=== PATIENT | female | born 1980 | race Caucasian/White ===

== ENCOUNTER 2023-06-02 12:35 | Outpatient (CLI) | payer BC, SELFPAY ==
--- NOTE | ~2023-06-02 | CT_ITS ---
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 Additional sagittal and coronal reconstructions were performed. Automated exposure cont rol and iterative reconstruction technique were employed. The dose-length product was 482.30 mGy-cm. COMPARISON: None FINDINGS: There are a pair of anterior to posteriorly directed lag screw spanning the neck of the talus likely for fixation of either an old fracture or osteotomy at the talar neck. Additional old healed fracture deformity suggested at the medial malleolus. There is severe osteoarthritis at the right ankle joint with remodeling of the articular surfaces at the anteromedial talar dome and tibial plafond. There i s osteochondral bodies at the anterior recesses of the joint space. Additional moderate to severe ost eoarthritis at the subtalar joint. Mild osteoarthritis at multiple joints in the midfoot. IMPRESSION: 1. Internally fixed likely old healed talar fracture versus osteotomy with secondary osteoarthritis, severe at the tibiotalar and moderate to severe at the subtalar joints. Reviewed, dictated and finalized at location A. [facility] [facility] IMPRESSION: 1. Internally fixed likely old healed talar fracture versus osteotomy with seco ndary osteoarthritis, severe at the tibiotalar and moderate to severe at the adams btalar joints.
== END 2023-06-02 12:36 | disposition home or self-care (01) ==
LOC: ANHIMG 12:37
PROVIDERS: PCP Registered Nurse; Visit Provider Orthopaedic Surgery
DX: M87.071 Idiopathic aseptic necrosis of right ankle (principal)
CPT/HCPCS: 73700

== ENCOUNTER 2023-07-15 01:29 | Day surgery (SDC) | payer BC, SELFPAY ==
[2023-07-09 12:32] VITALS: BMI 29.0
--- NOTE | 2023-07-09 12:37 | PC.NURSE ---
Report to the Outpatient Waiting Room, entrance under the green pavilion located off [facility], at time 1000 on date 07/15/23. Planned Procedure Time: 1200. Time changes happen often and if your time is changed the preop area will call you the afternoon before. - You and your visitor will be asked to self-screen and do not enter if you have any COVID symptoms. - A mask is optional within the hospital at this time. Patients may have clear liquids (water, carbonated beverages, clear teas, apple juice) until 3 hours prior to surgery with a maximum of 20 ounces. - No food from midnight until time of surgery Take the following medications with a SIP of water the morning of surgery: NONE DO NOT STOP ANY OF YOUR OTHER PRESCRIPTION MEDICATIONS PRIOR TO SURGERY ?EXCEPT THE FOLLOWING Medications to discontinue per physician: N/A Date to take last dose: N/A Please no make-up, nail indonesian, hairspray, perfume, deodorant, or body powder the day of surgery. No jewelry (including any body piercings) or valuables the day of surgery, leave them at home. Please take a shower or bath the night before, or the morning of, surgery with an antibacterial soap. Wear comfortable, loose fitting clothing. - Jewelry must be removed prior to entering the operating room. Rings and piercings that are not removed may be cut off. - The hospital will not accept responsibility for valuables. - Please leave all valuables, including medications, at home the day of surgery. If you are going home after surgery, a licensed otr driver must drive you home. - NO public transportation without another adult if you receive anesthesia. - We recommend that an adult stay with you for 24 hours following discharge. - We also recommend that you do not drive, make important decision, drink alcoholic beverages, or take any drugs that were not prescribed by your health care provider for at least 24 hours after your discharge time. Follow any additional instructions given to you from your surgeon. If you or anyone in your household have experienced Covid symptoms in the past week, please notify your surgeon or the nurse liaison at the phone number below for possible testing. Telephone instructions given to PT - CHRISTOPHER NEUMANN and asked if any additional questions and then verbalized understanding. Patient advised to call surgeon office or pre surgery nurse liaison [phone] if any additional questions.
[2023-07-15] VITALS (7 sets, daily range): BP systolic 118–148; BP diastolic 63–89; PULSE 62–89; RESP 16–20; TEMP 36.2–36.8; O2SAT 98–100
--- NOTE | ~2023-07-15 | XR_ITS ---
EXAMINATION: XR surgery orthopedic DATE: 07/15/2023 13:36 INDICATION: Right ankle orthopedic instrumentation removal TECHNIQUE: 3 fluoroscopic images of the right ankle were obtained during procedure performed by Dr. Tristan sam. Radiologist was not present for the imaging or procedure. The amount of fluoroscopy time used during this procedure was 0.1 minutes. COMPARISON: 06/23/2023 FINDINGS: There are residual lucent screw tracks in the calcaneus at the site of the since removed cannulated l ag screws. Residual irregular contour to the talus with depression of the talar dome likely sequela o f prior fracture or osteotomy. No acute fracture. There is also been resection of a couple loose oste ochondral bodies the anterior recess of the ankle joint and cheilectomy with resection of a prominent anterior osteophyte at the tibial plafond. Mild osteoarthritis at the subtalar joint. Severe osteoar thritis at the tibiotalar joint. Expected small amount of postoperative gas is seen at the anterior r ecess of the ankle joint. IMPRESSION: 1. Fluoroscopy utilized during the procedure the right ankle and hindfoot including removal of fixati on screws at the talus and resection of osteophytes and loose osteochondral bodies at the anterior re cess of the ankle joint. See procedure note for further detail. Reviewed, dictated and finalized at location L. IMPRESSION: 1. Fluoroscopy utilized during the procedure the right ankle and hindfoot inclu ding removal of fixation screws at the talus and resection of osteophytes and l oose osteochondral bodies at the anterior recess of the ankle joint. See proced ure note for further detail.
--- NOTE | 2023-07-15 09:48 | WPDHPUPDATE1 ---
History and Physical Update Update Date/Time: 07/15/23 09:48 History and Physical has been reviewed, including an updated exam of the patient. There are NO changes in the patient's condition. Plan open debridement of ankle with excision of osteophytes, hardware removal. Risks, benefits, and alternatives have been discussed and questions answered. Patient agrees to proceed with procedure.
--- NOTE | 2023-07-15 10:17 | P.PNAN_ITS ---
Anes - Eval Pre Procedure Procedure: Operation Date: 07/15/23 12:00 Proposed Procedures p Right Ankle Debridement, Removal of Hardware, Possible Bone Graft, Proceed as indicated - German Stafofrd MD Date/Time: 07/15/23 10:17 Pre Op Diagnosis: Rt Ankle Pain, Instability, Hardware,Exostosis Patient Data Age: 43 Gender: F Height: 1.7 m Weight: 83.95 kg Allergies Allergy/AdvReac Type Severity Reaction Status Date / Time No Known Allergies Allergy Mild Verified 07/15/23 10:10 Home Medications Medication Instructions Recorded Confirmed Type cetirizine 10 mg tablet (Zyrtec) 10 mg PO DAILY PRN Allergy Symptoms 03/12/22 07/09/23 History phentermine 37.5 mg tablet 37.5 mg PO DAILY PRN Weight Gain 07/09/23 07/15/23 History trazodone 150 mg tablet 150 mg PO HS PRN Sleep 07/09/23 07/15/23 History Patient hx anesthesia problems: none Family hx anesthesia problems: none Results Review: All pre-operative results and documents have been reviewed as part of the pre- operative evaluation. [facility] Past Medical History Medical History Anxiety Arthritis Avascular necrosis of right talus Chronic pain of right ankle Eczema Fracture of neck of right talus Traumatic arthritis of right ankle Surgical History Surgical History Aftercare following right ankle joint replacement surgery Right talus fracture 1997 History of surgery on lower extremity Left leg rods/pins 1997 Family History Family History Other Diabetes mellitus Family history of arthritis Family history of cardiovascular disease HLD (hyperlipidemia) Heart disease Hypertension Social History Social History Smoking status: Never smoker Alcohol intake: current Alcohol use details: 1/MONTH Substance use: never Substance use type: does not use Current Housing: Decline to Answer Concerned About Future Housing: Decline to Answer Difficulty Paying Gas/Electric Bills: Decline to Answer Difficulty Paying for Meds: Decline to Answer Currently Unemployed: Decline to Answer Education: Decline to Answer Difficulty w/ Childcare or Family Care: Decline to Answer Living arrangements: with family Occupation/Education: occupation Gender identity (if verbalized by the patient): Female Spiritual care concerns: No Exam Day of Procedure 07/15/23 10:17 Patient weight: overweight
[2023-07-15] MEDS: ACETAMINOPHEN 500 MG TABLET 1000 MG PO (10:41)
[2023-07-15] MEDS: KETOROLAC 15 MG/ML VIAL (*BKC) IV PUSH (10:52)
[2023-07-15] MEDS: LACTATED RINGERS 1,000 ML 30 ML IV CONT ×2 (10:53→14:19)
--- NOTE | 2023-07-15 11:22 | P.PNAN_ITS ---
Anes - Eval Final PreProcedure Day of Procedure 07/15/23 11:22 Patient weight: obese Heart: regular rate and rhythm Lungs: clear to auscultation Airway: Mallampati scale class II Neurological: alert and oriented Last oral intake: >/= 8 hours ASA classification: II Emergent: no Anesthetic plan: proceed Anesthesia type and monitoring: general LMA and standard monitoring Results Review: All pre-operative results and documents have been reviewed as part of the pre- operative evaluation. Informed Consent: The patient's anesthetic plan and its attendant risks and benefits were discussed with the patient/family/POA. Questions were solicited and answers provided to the satisfaction of the patient/family/POA.
[2023-07-15] MEDS: ceFAZolin 2 GM/D5W 50 ML 2 GM/50 ML BAG IVPB (11:54)
[2023-07-15] MEDS: BUPivacaine HCL 0.5% 10 ML AMP 30 ML INFILTRATE (12:37)
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
[2023-07-15] MEDS: fentaNYL CITRATE INJ (*CRX) 100 MCG/2 ML VIAL 25 MCG IV PUSH ×4 (14:28→14:44)
[2023-07-15] MEDS: oxyCODONE HCL (*CRX) 5 MG TAB IR PO (15:06)
== END 2023-07-15 15:50 | disposition home or self-care (01) ==
PROVIDERS: PCP Registered Nurse; Visit Provider Orthopaedic Surgery
PROC: (CPT 29898; principal; 2023-07-15 12:00)
DX: M12.571 Traumatic arthropathy, right ankle and foot (principal); M25.571 Pain in right ankle and joints of right foot; M25.371 Other instability, right ankle; M87.071 Idiopathic aseptic necrosis of right ankle; T84.84XA Pain due to internal orthopedic prosthetic devices, implants and grafts, initial encounter; Y83.8 Other surgical procedures as the cause of abnormal reaction of the patient, or of later complication, without mention of misadventure at the time of the procedure; S82.301S Unspecified fracture of lower end of right tibia, sequela; V49.9XXS Car occupant (driver) (passenger) injured in unspecified traffic accident, sequela
CPT/HCPCS: 29898; 20680; 99199; A9270; C1713; J0690; J1100; J1885; J2250; J2405; J2704; J3010; J7120